=== PATIENT | female | born 1980 | race Caucasian/White ===

== ENCOUNTER 2017-06-29 21:22 | Emergency (ER) | payer MEDICAID ==
[~2017-06-29] VITALS: Ht 157.5 cm; Wt 52.5 kg
[2017-06-29] MEDS ORDERED: SODIUM CHLORIDE 0.9% 1,000 ML IV ONE (23:43)
[2017-06-29] MEDS ORDERED: DiphenhydrAMINE HCL 50 MG/ML VIAL IVP ONE (23:45)
[2017-06-29] MEDS ORDERED: ONDANSETRON HCL 4 MG/2 ML VIAL IVP ONE (23:45)
[2017-06-30 00:01] VITALS: BP 110/65
== END 2017-06-30 00:13 | disposition home or self-care (01) ==
LOC: EMS 21:25
DX: G43.909 Migraine, unspecified, not intractable, without status migrainosus (principal); F41.9 Anxiety disorder, unspecified; F99 Mental disorder, not otherwise specified; F32.9 Major depressive disorder, single episode, unspecified
CPT/HCPCS: 99281

== ENCOUNTER 2017-09-20 21:50 | Inpatient (IN) | payer MEDICAID ==
[~2017-09-20] VITALS: Ht 157.5 cm; Wt 50.0 kg
[2017-09-20] MEDS ORDERED: DiphenhydrAMINE HCL 50 MG/ML VIAL IM ONE (22:30)
[2017-09-20] MEDS ORDERED: LORazepam 2 MG/ML VIAL IM ONE (22:30)
[2017-09-20] MEDS ORDERED: HALOPERIDOL LACTATE 5 MG/ML VIAL IM ONE (22:30)
[2017-09-20] MEDS ORDERED: LORazepam 2 MG TABLET PO PRN (22:45)
[2017-09-20] MEDS ORDERED: ZOLPIDEM TARTRATE 10 MG TABLET PO PRN (22:45)
[2017-09-20] MEDS ORDERED: HALOPERIDOL 5 MG TABLET PO PRN (22:45)
[2017-09-20 23:57] LABS: BASOPHILS % (AUTO) 0.4 % (0.0-2.0); EOSINOPHILS % (AUTO) 2.1 % (1.0-6.0); HEMATOCRIT 33.3 % (36-46); HEMOGLOBIN 11.2 g/dL (12.0-16.0); LYMPHOCYTES % (AUTO) 30.2 % (22.0-44.0); MEAN CORPUSCULAR HEMOGLOBIN 33.1 pg (26.0-34.0); MEAN CORPUSCULAR HGB CONC 33.8 G/dL (31.0-37.0); MEAN CORPUSCULAR VOLUME 98 fL (80-100); MONOCYTES # (AUTO) 0.5 K/uL (0.1-1.0); MONOCYTES % (AUTO) 7.6 % (2.0-9.0); NEUTROPHILS % (AUTO) 59.7 % (40.0-70.0); PLATELET COUNT (AUTO) 215 K/uL (150-450); RED CELL DISTRIBUTION WIDTH 12.9 % (11.5-14.5)
[2017-09-21 00:11] LABS: ANION GAP 6 mmol/L (8-16); CARBON DIOXIDE 26 mmol/L (22-29); CHLORIDE 107 mmol/L (98-107); POTASSIUM 3.8 mmol/L (3.5-5.1); SODIUM SERUM 139 mmol/L (136-145)
[2017-09-21 00:12] LABS: CALCIUM, TOTAL 8.5 mg/dL (8.8-10.5); CREATININE 0.85 mg/dL (0.60-1.30); GLOMERULAR FILTR. RATE CALC > 60 mL/min (>60); GLUCOSE,RANDOM 104 mg/dL (70-110); UREA NITROGEN, BLOOD 9 mg/dL (7-18)
[2017-09-21 00:13] LABS: ALANINE AMINOTRANSFERASE 19 U/L (12-78); ALBUMIN 3.4 g/dL (3.4-5.0); ALKALINE PHOSPHATASE 52 U/L (46-116); ASPARTATE AMINOTRANSFERASE 18 U/L (15-37); BILIRUBIN,TOTAL 0.4 mg/dL (0.1-1.0); TOTAL PROTEIN, SERUM 5.8 g/dL (6.4-8.2)
[2017-09-21 01:28] LABS: CHOL/HDL RATIO 3.1 (3.9-5.7); CHOLESTEROL 151 mg/dL (131-200); HDL CHOLESTEROL 49 mg/dL (40-60); LDL CHOL (CALC.) 92 mg/dL (0-130); THYROID STIMULATING HORMONE 0.51 uIU/mL (0.36-3.74); TRIGLYCERIDES 52 mg/dL (15-150)
[2017-09-21 01:50] VITALS: BP 128/73
[2017-09-21] MEDS ORDERED: INFLUENZA VIRUS VACCINE QVS 2017-18 (3YR+)/PF 60 MCG/0.5 ML SYRINGE IM ONE (03:15)
[2017-09-21 08:32] VITALS: BP 122/71
[2017-09-21 17:27] VITALS: BP 112/88
[2017-09-21] MEDS: HALOPERIDOL 5 MG TABLET PO SCH (18:49)
[2017-09-21] MEDS: BENZTROPINE MESYLATE 0.5 MG TABLET PO SCH (18:50)
[2017-09-22 07:23] VITALS: BP 100/80
[2017-09-22] MEDS: BENZTROPINE MESYLATE 0.5 MG TABLET PO SCH ×2 (08:23→16:13)
[2017-09-22] MEDS: HALOPERIDOL 5 MG TABLET PO SCH ×2 (08:23→16:13)
[2017-09-22 08:28] VITALS: BP 100/54
[2017-09-22 16:00] VITALS: BP 98/60
[2017-09-23 08:21] VITALS: BP 90/69
[2017-09-23] MEDS: BENZTROPINE MESYLATE 0.5 MG TABLET PO SCH ×2 (09:50→16:24)
[2017-09-23] MEDS: HALOPERIDOL 5 MG TABLET PO SCH ×2 (09:50→16:24)
[2017-09-23 16:08] VITALS: BP 102/62
[2017-09-24 07:23] VITALS: BP 121/73
[2017-09-24] MEDS: BENZTROPINE MESYLATE 0.5 MG TABLET PO SCH ×2 (08:08→16:51)
[2017-09-24] MEDS: HALOPERIDOL 5 MG TABLET PO SCH ×2 (08:08→16:51)
[2017-09-24 09:03] VITALS: BP 120/78
[2017-09-24 16:00] VITALS: BP 100/60
[2017-09-25 06:29] VITALS: BP 117/63
[2017-09-25] MEDS: HALOPERIDOL 5 MG TABLET PO SCH ×3 (08:36→16:26)
[2017-09-25] MEDS: BENZTROPINE MESYLATE 0.5 MG TABLET PO SCH ×3 (08:36→16:26)
[2017-09-25 08:45] VITALS: BP 86/47
[2017-09-25 08:50] VITALS: BP 86/39
[2017-09-25 08:55] VITALS: BP 78/48
[2017-09-25] MEDS ORDERED: BENZ1TAB10 PO (10:12)
[2017-09-25] MEDS ORDERED: HALO5 PO (10:12)
[2017-09-25] MEDS ORDERED: LORA2TAB2 PO (10:12)
[2017-09-25 14:29] VITALS: BP 97/58
[2017-09-25 16:41] VITALS: BP 106/60
[2017-09-25] MEDS ORDERED: CIPROFLOXACIN HCL 500 MG TABLET PO SCH (17:00)
[2017-09-26 00:33] VITALS: BP 119/68
[2017-09-26] MEDS ORDERED: CIPR-278 PO (02:22)
[2017-09-26] MEDS ORDERED: BENZ0.5T6 PO (02:22)
[2017-09-26] MEDS ORDERED: HALO5 PO (02:22)
== END 2017-09-26 07:15 | disposition home or self-care (01) | DRG 751 ==
LOC: EMS 21:51 → B3A 23:00 → B2S 09-25 14:27
PROVIDERS: ADMIT Psychiatry & Neurology Psychiatry; ATTEND Psychiatry & Neurology Psychiatry
DX: F29 Unspecified psychosis not due to a substance or known physiological condition (principal); R45.851 Suicidal ideations; F32.9 Major depressive disorder, single episode, unspecified; D64.9 Anemia, unspecified; F41.9 Anxiety disorder, unspecified; R45.87 Impulsiveness; F11.10 Opioid abuse, uncomplicated; F15.90 Other stimulant use, unspecified, uncomplicated; Z91.5 Personal history of self-harm; Z59.0 Homelessness; Z28.21 Immunization not carried out because of patient refusal; Z71.51 Drug abuse counseling and surveillance of drug abuser
CPT/HCPCS: 84443; 90471; 96372; 99285; G0480; J1200; J1630; J2060

== ENCOUNTER 2017-09-25 09:35 | Emergency (ER) | payer MEDICAID ==
[~2017-09-25] VITALS: Ht 157.5 cm; Wt 54.5 kg
[2017-09-25] MEDS ORDERED: LORA2TAB2 PO (10:12)
[2017-09-25] MEDS ORDERED: BENZ1TAB10 PO (10:12)
[2017-09-25] MEDS ORDERED: HALO5 PO (10:12)
[2017-09-25] MEDS ORDERED: SODIUM CHLORIDE 0.9% 1,000 ML IV ONE (10:15)
[2017-09-25 10:40] LABS: BASOPHILS # (AUTO) 0.02 K/uL (0.00-0.20); BASOPHILS % (AUTO) 0.4 % (0.0-2.0); EOSINOPHILS # (AUTO) 0.19 K/uL (0.00-0.70); EOSINOPHILS % (AUTO) 3.22 % (1.0-6.0); HEMATOCRIT 36.5 % (36-46); HEMOGLOBIN 12.2 g/dL (12.0-16.0); LYMPHOCYTES # (AUTO) 1.3 K/uL (1.0-4.8); MEAN CORPUSCULAR HEMOGLOBIN 32.8 pg (26.0-34.0); MEAN CORPUSCULAR HGB CONC 33.5 G/dL (31.0-37.0); MEAN CORPUSCULAR VOLUME 98 fL (80-100); MONOCYTES # (AUTO) 0.4 K/uL (0.1-1.0); MONOCYTES % (AUTO) 6.8 % (2.0-9.0); NEUTROPHILS % (AUTO) 67.6 % (40.0-70.0); PLATELET COUNT (AUTO) 200 K/uL (150-450); RED BLOOD CELL COUNT(AUTO) 3.72 MIL/uL (4.00-5.20); RED CELL DISTRIBUTION WIDTH 13.1 % (11.5-14.5)
[2017-09-25 10:43] LABS: ANION GAP 7 mmol/L (8-16); CALCIUM, TOTAL 8.7 mg/dL (8.8-10.5); CARBON DIOXIDE 27 mmol/L (22-29); CHLORIDE 106 mmol/L (98-107); CREATININE 0.78 mg/dL (0.60-1.30); GLOMERULAR FILTR. RATE CALC > 60 mL/min (>60); GLUCOSE,RANDOM 104 mg/dL (70-110); POTASSIUM 3.8 mmol/L (3.5-5.1); SODIUM SERUM 140 mmol/L (136-145); UREA NITROGEN, BLOOD 11 mg/dL (7-18)
[2017-09-25 10:49] LABS: ALANINE AMINOTRANSFERASE 15 U/L (12-78); ALBUMIN 3.3 g/dL (3.4-5.0); ALKALINE PHOSPHATASE 51 U/L (46-116); ASPARTATE AMINOTRANSFERASE 11 U/L (15-37); BILIRUBIN,TOTAL 0.3 mg/dL (0.1-1.0); TOTAL PROTEIN, SERUM 6.5 g/dL (6.4-8.2)
[2017-09-25 11:15] LABS: APPEARANCE,URINE CLOUDY (CLEAR); BILIRUBIN,URINE NEGATIVE (NEGATIVE); GLUCOSE, URINE (UA) NEGATIVE (NEGATIVE); KETONES,URINE NEGATIVE (NEGATIVE); LEUKOCYTE ESTERASE ,URINE LARGE (NEGATIVE); NITRATE,URINE NEGATIVE (NEGATIVE); OCCULT BLOOD,URINE NEGATIVE (NEGATIVE); PH,URINE 6.5 (5.0-8.0); PROTEIN,URINE NEGATIVE (NEGATIVE); UROBILINOGEN,URINE 0.2 mg/dL (<=1.0)
[2017-09-25 11:24] LABS: RBC,URINE None Seen /HPF (0-2)
[2017-09-25 11:26] LABS: BACTERIA,URINE Few /HPF (None Seen); SQUAMOUS EPITHELIAL CELL,UR Moderate /LPF (None Seen)
[2017-09-25 12:11] VITALS: BP 106/55
[2017-09-26] MEDS ORDERED: CIPR-278 PO (02:22)
[2017-09-26] MEDS ORDERED: BENZ0.5T6 PO (02:22)
[2017-09-26] MEDS ORDERED: HALO5 PO (02:22)
== END 2017-09-25 12:13 | disposition home or self-care (01) ==
LOC: EMS 09:58
DX: Z00.00 Encounter for general adult medical examination without abnormal findings (principal); F29 Unspecified psychosis not due to a substance or known physiological condition; F41.9 Anxiety disorder, unspecified; F32.9 Major depressive disorder, single episode, unspecified
CPT/HCPCS: 36415; 80053; 81001; 84703; 85025; 87077; 87086; 87186; 93005; 96360; 99285; J7030

== ENCOUNTER 2018-01-18 14:33 | Inpatient (IN) | payer MEDICAID ==
[~2018-01-18] VITALS: Ht 157.5 cm; Wt 50.8 kg
[~2018-01-18 14:33] MED LIST: BENZ0.5T6 PO; CIPR-278 PO; HALO5 PO
[2018-01-18] MEDS ORDERED: INFLUENZA VIRUS VACCINE QVS 2017-18 (3YR+)/PF 60 MCG/0.5 ML SYRINGE IM ONE (16:00)
[2018-01-18 16:08] VITALS: BP 101/59
[2018-01-18 16:40] VITALS: BP 100/70
[2018-01-18] MEDS: HALOPERIDOL 5 MG TABLET PO SCH (16:51)
[2018-01-18] MEDS: BENZTROPINE MESYLATE 0.5 MG TABLET PO SCH (16:52)
[2018-01-18] MEDS: LORazepam 2 MG TABLET PO PRN (16:52)
[2018-01-19 06:34] VITALS: BP 110/68
[2018-01-19 08:34] LABS: BASOPHILS % (AUTO) 0.6 % (0.0-2.0); EOSINOPHILS % (AUTO) 3.2 % (1.0-6.0); HEMATOCRIT 35.3 % (36-46); HEMOGLOBIN 11.9 g/dL (12.0-16.0); LYMPHOCYTES % (AUTO) 30.9 % (22.0-44.0); MEAN CORPUSCULAR HEMOGLOBIN 32.7 pg (26.0-34.0); MEAN CORPUSCULAR HGB CONC 33.7 G/dL (31.0-37.0); MEAN CORPUSCULAR VOLUME 97 fL (80-100); MONOCYTES # (AUTO) 0.3 K/uL (0.1-1.0); MONOCYTES % (AUTO) 4.8 % (2.0-9.0); NEUTROPHILS # (AUTO) 3.9 K/uL (1.8-7.7); NEUTROPHILS % (AUTO) 60.5 % (40.0-70.0); PLATELET COUNT (AUTO) 197 K/uL (150-450); RED BLOOD CELL COUNT(AUTO) 3.65 MIL/uL (4.00-5.20); RED CELL DISTRIBUTION WIDTH 13.4 % (11.5-14.5)
[2018-01-19 08:41] LABS: HEMOGLOBIN A1C 5.3 % (4.5-6.2)
[2018-01-19 09:00] VITALS: BP 110/64
[2018-01-19 09:10] LABS: ALANINE AMINOTRANSFERASE 20 U/L (12-78); ALBUMIN 3.3 g/dL (3.4-5.0); ALKALINE PHOSPHATASE 89 U/L (46-116); ANION GAP 7 mmol/L (8-16); ASPARTATE AMINOTRANSFERASE 9 U/L (15-37); BILIRUBIN,TOTAL 0.2 mg/dL (0.1-1.0); CALCIUM, TOTAL 8.3 mg/dL (8.8-10.5); CARBON DIOXIDE 27 mmol/L (22-29); CHLORIDE 107 mmol/L (98-107); CHOL/HDL RATIO 2.8 (3.9-5.7); CHOLESTEROL 157 mg/dL (131-200); CREATININE 0.68 mg/dL (0.60-1.30); FREE T4 (FREE THYROXINE) 0.71 ng/dL (0.76-1.46); GLOMERULAR FILTR. RATE CALC > 60 mL/min (>60); GLUCOSE,RANDOM 92 mg/dL (70-110); HCG,QUANTITATIVE < 1 mIU/mL (0-6); HDL CHOLESTEROL 56 mg/dL (40-60); LDL CHOL (CALC.) 90 mg/dL (0-130); POTASSIUM 4.2 mmol/L (3.5-5.1); SODIUM SERUM 141 mmol/L (136-145); THYROID STIMULATING HORMONE 0.35 uIU/mL (0.36-3.74); TOTAL PROTEIN, SERUM 6.2 g/dL (6.4-8.2); TRIGLYCERIDES 57 mg/dL (15-150); UREA NITROGEN, BLOOD 18 mg/dL (7-18)
[2018-01-19] MEDS: BENZTROPINE MESYLATE 0.5 MG TABLET PO SCH ×2 (09:22→17:18)
[2018-01-19] MEDS: HALOPERIDOL 5 MG TABLET PO SCH ×2 (09:22→17:18)
[2018-01-19] MEDS ORDERED: ACETAMINOPHEN 325 MG TABLET PO PRN (15:15)
[2018-01-19] MEDS ORDERED: IBUPROFEN 400 MG TABLET PO PRN (15:15)
[2018-01-19] MEDS: FERROUS SULFATE 325 MG EC TABLET PO SCH (17:18)
[2018-01-19 19:13] VITALS: BP 93/54
[2018-01-20] MEDS: FERROUS SULFATE 325 MG EC TABLET PO SCH ×2 (06:18→16:45)
[2018-01-20 07:13] VITALS: BP 100/62
[2018-01-20] MEDS: BENZTROPINE MESYLATE 0.5 MG TABLET PO SCH ×2 (08:14→16:45)
[2018-01-20] MEDS: HALOPERIDOL 5 MG TABLET PO SCH ×2 (08:14→16:45)
[2018-01-20 08:21] VITALS: BP 106/52
[2018-01-20] MEDS: LORazepam 2 MG TABLET PO PRN (16:45)
[2018-01-20 17:57] VITALS: BP 99/62
[2018-01-21] MEDS: FERROUS SULFATE 325 MG EC TABLET PO SCH ×2 (06:25→16:18)
[2018-01-21 06:47] VITALS: BP 129/83
[2018-01-21 08:34] VITALS: BP 100/62
[2018-01-21 08:40] LABS: BASOPHILS % (AUTO) 0.6 % (0.0-2.0); EOSINOPHILS % (AUTO) 3.8 % (1.0-6.0); HEMATOCRIT 34.4 % (36-46); HEMOGLOBIN 11.6 g/dL (12.0-16.0); LYMPHOCYTES # (AUTO) 1.7 K/uL (1.0-4.8); LYMPHOCYTES % (AUTO) 35.2 % (22.0-44.0); MEAN CORPUSCULAR HEMOGLOBIN 32.3 pg (26.0-34.0); MEAN CORPUSCULAR HGB CONC 33.6 G/dL (31.0-37.0); MEAN CORPUSCULAR VOLUME 96 fL (80-100); MONOCYTES # (AUTO) 0.4 K/uL (0.1-1.0); MONOCYTES % (AUTO) 7.6 % (2.0-9.0); NEUTROPHILS # (AUTO) 2.6 K/uL (1.8-7.7); NEUTROPHILS % (AUTO) 52.8 % (40.0-70.0); PLATELET COUNT (AUTO) 181 K/uL (150-450); RED BLOOD CELL COUNT(AUTO) 3.59 MIL/uL (4.00-5.20); RED CELL DISTRIBUTION WIDTH 13.6 % (11.5-14.5)
[2018-01-21] MEDS: BENZTROPINE MESYLATE 0.5 MG TABLET PO SCH ×2 (08:44→16:18)
[2018-01-21] MEDS: HALOPERIDOL 5 MG TABLET PO SCH ×2 (08:44→16:18)
[2018-01-21] MEDS: LORazepam 2 MG TABLET PO PRN (08:44)
[2018-01-21] MEDS: NICOTINE 14 MG/24 HOUR PATCH TD SCH (10:27)
[2018-01-21 16:02] VITALS: BP 112/65
[2018-01-21] MEDS: ZOLPIDEM TARTRATE 10 MG TABLET PO PRN (20:14)
[2018-01-22 03:10] VITALS: BP 100/75
[2018-01-22] MEDS: FERROUS SULFATE 325 MG EC TABLET PO SCH ×2 (06:23→16:16)
[2018-01-22] MEDS: NICOTINE 14 MG/24 HOUR PATCH TD SCH (08:27)
[2018-01-22] MEDS: HALOPERIDOL 5 MG TABLET PO SCH ×2 (08:27→16:16)
[2018-01-22] MEDS: BENZTROPINE MESYLATE 0.5 MG TABLET PO SCH ×2 (08:27→16:16)
[2018-01-22] MEDS: LORazepam 2 MG TABLET PO PRN ×3 (08:41→17:54)
[2018-01-22 10:05] VITALS: BP 93/60
[2018-01-22] MEDS: HALOPERIDOL 5 MG TABLET PO PRN (12:53)
[2018-01-22 16:13] VITALS: BP 104/64
[2018-01-23 06:17] VITALS: BP 100/66
[2018-01-23] MEDS: FERROUS SULFATE 325 MG EC TABLET PO SCH ×2 (06:28→16:45)
[2018-01-23] MEDS: BENZTROPINE MESYLATE 0.5 MG TABLET PO SCH ×2 (08:07→16:45)
[2018-01-23] MEDS: HALOPERIDOL 5 MG TABLET PO SCH ×2 (08:07→16:45)
[2018-01-23] MEDS: NICOTINE 21 MG/24 HOUR PATCH TD SCH (08:07)
[2018-01-23 08:28] VITALS: BP 100/59
[2018-01-23] MEDS: LORazepam 2 MG TABLET PO PRN ×3 (09:01→18:38)
[2018-01-23 10:00] VITALS: BP 110/68
[2018-01-23 16:30] VITALS: BP 108/69
[2018-01-23] MEDS ORDERED: MAG HYDROX/AL HYDROX/SIMETH ES 30 ML SUSPENSION UDCUP PO PRN (17:00)
[2018-01-23] MEDS: HALOPERIDOL 5 MG TABLET PO PRN (19:29)
[2018-01-23] MEDS: ZOLPIDEM TARTRATE 10 MG TABLET PO PRN (21:05)
[2018-01-24] MEDS: FERROUS SULFATE 325 MG EC TABLET PO SCH ×2 (06:34→16:52)
[2018-01-24 07:08] VITALS: BP 110/62
[2018-01-24 08:13] VITALS: BP 109/54
[2018-01-24] MEDS: BENZTROPINE MESYLATE 0.5 MG TABLET PO SCH ×2 (08:18→16:52)
[2018-01-24] MEDS: NICOTINE 21 MG/24 HOUR PATCH TD SCH (08:19)
[2018-01-24] MEDS: HALOPERIDOL 5 MG TABLET PO SCH ×2 (08:19→16:52)
[2018-01-24 12:59] VITALS: BP 112/60
[2018-01-24 16:31] VITALS: BP 103/63
[2018-01-24] MEDS: LORazepam 2 MG TABLET PO PRN (18:15)
[2018-01-24] MEDS: HALOPERIDOL 5 MG TABLET PO PRN (18:56)
[2018-01-24] MEDS: ZOLPIDEM TARTRATE 10 MG TABLET PO PRN (20:48)
[2018-01-25] MEDS: FERROUS SULFATE 325 MG EC TABLET PO SCH ×2 (06:37→16:31)
[2018-01-25 06:43] VITALS: BP 112/66
[2018-01-25] MEDS: BENZTROPINE MESYLATE 0.5 MG TABLET PO SCH ×2 (08:38→16:31)
[2018-01-25] MEDS: NICOTINE 21 MG/24 HOUR PATCH TD SCH (08:38)
[2018-01-25] MEDS: HALOPERIDOL 5 MG TABLET PO SCH ×2 (08:38→16:31)
[2018-01-25 08:47] VITALS: BP 100/55
[2018-01-25 09:13] LABS: APPEARANCE,URINE CLOUDY (CLEAR); BILIRUBIN,URINE NEGATIVE (NEGATIVE); GLUCOSE, URINE (UA) NEGATIVE (NEGATIVE); KETONES,URINE NEGATIVE (NEGATIVE); LEUKOCYTE ESTERASE ,URINE MODERATE (NEGATIVE); NITRATE,URINE NEGATIVE (NEGATIVE); OCCULT BLOOD,URINE NEGATIVE (NEGATIVE); PROTEIN,URINE NEGATIVE (NEGATIVE); UROBILINOGEN,URINE 0.2 mg/dL (<=1.0)
[2018-01-25 09:23] LABS: AMPHET/METH SCREEN,URINE NEGATIVE (NEGATIVE); BARBITURATE SCREEN, URINE NEGATIVE (NEGATIVE); BENZODIAZEPINES SCREEN,URINE NEGATIVE (NEGATIVE); CANNABINOID SCREEN,URINE NEGATIVE (NEGATIVE); COCAINE SCREEN,URINE NEGATIVE (NEGATIVE); METHADONE SCREEN, URINE NEGATIVE (NEGATIVE); OPIATE SCREEN,URINE NEGATIVE (NEGATIVE)
[2018-01-25 09:28] LABS: PHENCYCLIDINE SCREEN,URINE NEGATIVE (NEGATIVE)
[2018-01-25 09:30] VITALS: BP 110/68
[2018-01-25] MEDS: LORazepam 2 MG TABLET PO PRN ×2 (09:35→16:31)
[2018-01-25 10:02] LABS: BACTERIA,URINE Moderate /HPF (None Seen); RBC,URINE 0-2 /HPF (0-2); SQUAMOUS EPITHELIAL CELL,UR Moderate /LPF (None Seen)
[2018-01-25 16:23] VITALS: BP 103/60
[2018-01-26] MEDS: FERROUS SULFATE 325 MG EC TABLET PO SCH (06:38)
[2018-01-26 07:17] VITALS: BP 112/65
[2018-01-26 08:39] VITALS: BP 93/60
[2018-01-26] MEDS: BENZTROPINE MESYLATE 0.5 MG TABLET PO SCH (09:55)
[2018-01-26] MEDS: HALOPERIDOL 5 MG TABLET PO SCH (09:55)
[2018-01-26] MEDS: NICOTINE 21 MG/24 HOUR PATCH TD SCH (09:56)
== END 2018-01-26 13:45 | disposition home or self-care (01) | DRG 750 ==
LOC: B3A 15:50
PROVIDERS: ADMIT Psychiatry & Neurology Psychiatry; ATTEND Psychiatry & Neurology Psychiatry
DX: F20.0 Paranoid schizophrenia (principal); E83.51 Hypocalcemia; E03.9 Hypothyroidism, unspecified; D64.9 Anemia, unspecified; F19.10 Other psychoactive substance abuse, uncomplicated; Z59.0 Homelessness; Z71.51 Drug abuse counseling and surveillance of drug abuser
CPT/HCPCS: 80307; 83036; 84439; 84443; 87086

== ENCOUNTER 2018-01-28 09:44 | Emergency (ER) | payer MEDICAID ==
[~2018-01-28] VITALS: Ht 157.5 cm; Wt 51.0 kg
[~2018-01-28 09:44] MED LIST changes: -CIPR-278 PO
[2018-01-28 11:30] VITALS: BP 128/74
== END 2018-01-28 11:50 | disposition home or self-care (01) ==
LOC: EMS 09:45
DX: L29.0 Pruritus ani (principal); F32.9 Major depressive disorder, single episode, unspecified; F41.9 Anxiety disorder, unspecified; Z98.890 Other specified postprocedural states; Z79.899 Other long term (current) drug therapy
CPT/HCPCS: 99283

== ENCOUNTER 2018-07-15 12:57 | Inpatient (IN) | payer MEDICAID ==
[~2018-07-15] VITALS: Ht 154.9 cm; Wt 56.2 kg
[~2018-07-15 12:57] MED LIST changes: +BENZ0.5T44 PO; -BENZ0.5T6 PO; -HALO5 PO; +HALO5TAB2 PO
[2018-07-15] MEDS ORDERED: FLUO-191 PO (13:12)
[2018-07-15] MEDS ORDERED: HYDR-4031 PO (13:12)
[2018-07-15] MEDS ORDERED: ARIP5TAB8 PO (13:12)
[2018-07-15] MEDS ORDERED: LORA1TAB3 PO (13:12)
[2018-07-15 13:38] LABS: BASOPHILS % (AUTO) 0.4 % (0.0-2.0); EOSINOPHILS % (AUTO) 2.8 % (1.0-6.0); HEMATOCRIT 37.9 % (36-46); HEMOGLOBIN 12.8 g/dL (12.0-16.0); LYMPHOCYTES # (AUTO) 1.8 K/uL (1.0-4.8); LYMPHOCYTES % (AUTO) 26.5 % (22.0-44.0); MEAN CORPUSCULAR HEMOGLOBIN 32.6 pg (26.0-34.0); MEAN CORPUSCULAR HGB CONC 33.9 G/dL (31.0-37.0); MEAN CORPUSCULAR VOLUME 96 fL (80-100); MONOCYTES # (AUTO) 0.4 K/uL (0.1-1.0); MONOCYTES % (AUTO) 5.4 % (2.0-9.0); NEUTROPHILS # (AUTO) 4.3 K/uL (1.8-7.7); NEUTROPHILS % (AUTO) 64.9 % (40.0-70.0); PLATELET COUNT (AUTO) 188 K/uL (150-450); RED BLOOD CELL COUNT(AUTO) 3.94 MIL/uL (4.00-5.20); RED CELL DISTRIBUTION WIDTH 14.3 % (11.5-14.5)
[2018-07-15 13:45] LABS: AMPHET/METH SCREEN,URINE NEGATIVE (NEGATIVE); BARBITURATE SCREEN, URINE NEGATIVE (NEGATIVE); BENZODIAZEPINES SCREEN,URINE NEGATIVE (NEGATIVE); CANNABINOID SCREEN,URINE NEGATIVE (NEGATIVE); COCAINE SCREEN,URINE NEGATIVE (NEGATIVE); METHADONE SCREEN, URINE NEGATIVE (NEGATIVE); OPIATE SCREEN,URINE NEGATIVE (NEGATIVE)
[2018-07-15 13:48] LABS: PHENCYCLIDINE SCREEN,URINE NEGATIVE (NEGATIVE)
[2018-07-15 13:55] LABS: ANION GAP 9 mmol/L (8-16); CALCIUM, TOTAL 8.6 mg/dL (8.8-10.5); CARBON DIOXIDE 27 mmol/L (22-29); CHLORIDE 103 mmol/L (98-107); CREATININE 0.74 mg/dL (0.60-1.30); GLOMERULAR FILTR. RATE CALC > 60 mL/min (>60); GLUCOSE,RANDOM 114 mg/dL (70-110); POTASSIUM 3.8 mmol/L (3.5-5.1); SODIUM SERUM 139 mmol/L (136-145); UREA NITROGEN, BLOOD 14 mg/dL (7-18)
[2018-07-15 14:01] LABS: ALANINE AMINOTRANSFERASE 61 U/L (12-78); ALBUMIN 3.4 g/dL (3.4-5.0); ALKALINE PHOSPHATASE 57 U/L (46-116); ASPARTATE AMINOTRANSFERASE 24 U/L (15-37); BILIRUBIN,TOTAL 0.4 mg/dL (0.1-1.0); TOTAL PROTEIN, SERUM 6.5 g/dL (6.4-8.2)
[2018-07-15] MEDS ORDERED: ACETAMINOPHEN 500 MG TABLET PO ONE (16:15)
[2018-07-15] MEDS ORDERED: ZOLPIDEM TARTRATE 10 MG TABLET PO PRN (17:15)
[2018-07-15 19:50] VITALS: BP 115/62
[2018-07-15] MEDS ORDERED: CloNIDine HCL 0.1 MG TABLET PO PRN (20:15)
[2018-07-15] MEDS ORDERED: ONDANSETRON HCL 4 MG TABLET PO PRN (20:15)
[2018-07-15] MEDS ORDERED: MAG HYDROX/AL HYDROX/SIMETH ES 30 ML SUSPENSION UDCUP PO PRN (20:15)
[2018-07-15] MEDS ORDERED: BENZOCAINE/MENTHOL LOZENGE MM PRN (20:15)
[2018-07-15] MEDS ORDERED: IBUPROFEN 600 MG TABLET PO PRN (20:15)
[2018-07-15] MEDS ORDERED: PETROLATUM,WHITE 71 GM JELLY TP PRN (20:15)
[2018-07-15] MEDS ORDERED: ACETAMINOPHEN 325 MG TABLET PO PRN (20:15)
[2018-07-15] MEDS ORDERED: MAGNESIUM HYDROXIDE SUSPENSION 30 ML UDCUP PO PRN (20:15)
[2018-07-15] MEDS ORDERED: BACITRACIN 28.4 GM OINTMENT TP PRN (20:15)
[2018-07-15] MEDS ORDERED: ALBUTEROL SULFATE HFA 90 MCG/PUFF 8 GM INHALER IH PRN (20:15)
[2018-07-15] MEDS ORDERED: LOPERAMIDE HCL 2 MG CAPSULE PO PRN (20:15)
[2018-07-15] MEDS: ARIPiprazole 5 MG TABLET PO SCH (21:12)
[2018-07-16 00:01] VITALS: BP 110/71
[2018-07-16 08:11] VITALS: BP 105/63
[2018-07-16] MEDS: NICOTINE 21 MG/24 HOUR PATCH TD SCH ×2 (09:00→09:50)
[2018-07-16] MEDS: FLUoxetine HCL 20 MG CAPSULE PO SCH (09:23)
[2018-07-16] MEDS: DOCUSATE SODIUM 100 MG CAPSULE PO SCH (09:24)
[2018-07-16] MEDS: OMEPRAZOLE 20 MG CAPSULE PO SCH (09:24)
[2018-07-16] MEDS: LORazepam 1 MG TABLET PO PRN (14:28)
[2018-07-16 16:04] VITALS: BP 119/71
[2018-07-16] MEDS: HydrOXYzine PAMOATE 25 MG CAPSULE PO SCH (17:26)
[2018-07-16] MEDS: ARIPiprazole 5 MG TABLET PO SCH (20:12)
[2018-07-17 03:50] VITALS: BP 111/60
[2018-07-17] MEDS: LORazepam 1 MG TABLET PO PRN ×2 (03:55→11:06)
[2018-07-17 08:39] VITALS: BP 109/55
[2018-07-17] MEDS: FLUoxetine HCL 20 MG CAPSULE PO SCH (09:11)
[2018-07-17] MEDS: HydrOXYzine PAMOATE 25 MG CAPSULE PO SCH ×2 (09:11→16:21)
[2018-07-17] MEDS: OMEPRAZOLE 20 MG CAPSULE PO SCH (09:11)
[2018-07-17] MEDS: DOCUSATE SODIUM 100 MG CAPSULE PO SCH (09:11)
[2018-07-17] MEDS: NICOTINE 21 MG/24 HOUR PATCH TD SCH (09:12)
[2018-07-17 16:26] VITALS: BP 108/74
[2018-07-17] MEDS: HALOPERIDOL 5 MG TABLET PO PRN (17:37)
[2018-07-17] MEDS: ARIPiprazole 5 MG TABLET PO SCH (20:09)
[2018-07-18 00:26] VITALS: BP 110/68
[2018-07-18 08:06] VITALS: BP 102/64
[2018-07-18] MEDS: HydrOXYzine PAMOATE 25 MG CAPSULE PO SCH ×2 (08:51→16:01)
[2018-07-18] MEDS: DOCUSATE SODIUM 100 MG CAPSULE PO SCH (08:51)
[2018-07-18] MEDS: NICOTINE 21 MG/24 HOUR PATCH TD SCH (08:51)
[2018-07-18] MEDS: FLUoxetine HCL 20 MG CAPSULE PO SCH (08:51)
[2018-07-18] MEDS: OMEPRAZOLE 20 MG CAPSULE PO SCH (08:51)
[2018-07-18] MEDS ORDERED: FLUO-191 PO (09:58)
[2018-07-18] MEDS ORDERED: ARIP5TAB8 PO (09:58)
[2018-07-18] MEDS ORDERED: HYDR-4031 PO (09:58)
[2018-07-18] MEDS: LORazepam 0.5 MG TABLET PO PRN (13:24)
[2018-07-18 16:02] VITALS: BP 105/69
[2018-07-18] MEDS: ARIPiprazole 5 MG TABLET PO SCH (20:05)
[2018-07-19 04:29] VITALS: BP 100/61
[2018-07-19 08:28] VITALS: BP 105/67
[2018-07-19] MEDS: HydrOXYzine PAMOATE 25 MG CAPSULE PO SCH ×2 (08:45→16:41)
[2018-07-19] MEDS: NALTREXONE HCL 50 MG TABLET PO SCH (08:45)
[2018-07-19] MEDS: OMEPRAZOLE 20 MG CAPSULE PO SCH (08:45)
[2018-07-19] MEDS: DOCUSATE SODIUM 100 MG CAPSULE PO SCH (08:45)
[2018-07-19] MEDS: NICOTINE 21 MG/24 HOUR PATCH TD SCH (08:45)
[2018-07-19] MEDS: FLUoxetine HCL 20 MG CAPSULE PO SCH (08:45)
[2018-07-19] MEDS: HALOPERIDOL 5 MG TABLET PO PRN (09:22)
[2018-07-19] MEDS: LORazepam 0.5 MG TABLET PO PRN ×2 (09:23→16:41)
[2018-07-19 16:00] VITALS: BP 104/65
[2018-07-19] MEDS: ARIPiprazole 10 MG TABLET PO SCH (20:11)
[2018-07-20 00:06] VITALS: BP 107/61
[2018-07-20] MEDS: NICOTINE 21 MG/24 HOUR PATCH TD SCH (08:33)
[2018-07-20] MEDS: HydrOXYzine PAMOATE 25 MG CAPSULE PO SCH ×2 (08:34→16:07)
[2018-07-20] MEDS: NALTREXONE HCL 50 MG TABLET PO SCH (08:34)
[2018-07-20] MEDS: FLUoxetine HCL 20 MG CAPSULE PO SCH (08:34)
[2018-07-20] MEDS: OMEPRAZOLE 20 MG CAPSULE PO SCH (08:35)
[2018-07-20] MEDS: DOCUSATE SODIUM 100 MG CAPSULE PO SCH (08:35)
[2018-07-20 08:38] VITALS: BP 109/68
[2018-07-20] MEDS ORDERED: FLUO-191 PO (12:05)
[2018-07-20] MEDS ORDERED: ARIP10TA8 PO (12:05)
[2018-07-20] MEDS ORDERED: HYD25 PO (12:05)
[2018-07-20] MEDS ORDERED: NALT50TA PO (12:05)
[2018-07-20] MEDS: LORazepam 0.5 MG TABLET PO PRN (12:10)
[2018-07-20] MEDS: HALOPERIDOL 5 MG TABLET PO PRN (12:10)
[2018-07-20 16:20] VITALS: BP 100/63
[2018-07-20] MEDS: ARIPiprazole 10 MG TABLET PO SCH (20:06)
[2018-07-21 00:08] VITALS: BP 101/62
[2018-07-21] MEDS ORDERED: NALT50TA6 PO (02:57)
[2018-07-21] MEDS ORDERED: DSS100 PO (02:57)
[2018-07-21] MEDS ORDERED: OMEP20 PO (02:57)
[2018-07-21] MEDS ORDERED: ARIP10TA8 PO (06:53)
[2018-07-21] MEDS ORDERED: FLUO-191 PO (06:53)
[2018-07-21] MEDS ORDERED: HYDR-4031 PO (06:58)
[2018-07-21] MEDS ORDERED: HYD25 PO (07:01)
[2018-07-21] MEDS ORDERED: FLUoxetine HCL 20 MG CAPSULE PO SCH (09:00)
== END 2018-07-21 07:20 | disposition home or self-care (01) | DRG 751 ==
LOC: EMS 12:58 → B2S 17:21
PROVIDERS: ADMIT Psychiatry & Neurology Psychiatry; ATTEND Psychiatry & Neurology Psychiatry
DX: F33.3 Major depressive disorder, recurrent, severe with psychotic symptoms (principal); R45.851 Suicidal ideations; Z91.19 Patient's noncompliance with other medical treatment and regimen; F41.9 Anxiety disorder, unspecified; Z59.0 Homelessness; Z98.891 History of uterine scar from previous surgery; Z79.899 Other long term (current) drug therapy
CPT/HCPCS: 87081; 99285; G0480

== ENCOUNTER 2019-02-05 16:36 | Emergency (ER) | payer MEDICAID, OTHER ==
[~2019-02-05] VITALS: Ht 157.5 cm; Wt 51.8 kg
[~2019-02-05 16:36] MED LIST changes: +ARIP10TA8 PO; -BENZ0.5T44 PO; +FLUO-191 PO; -HALO5TAB2 PO; +HYD25 PO; +NALT50TA PO
[2019-02-05 18:17] LABS: AMPHET/METH SCREEN,URINE POSITIVE (NEGATIVE); BARBITURATE SCREEN, URINE NEGATIVE (NEGATIVE); BENZODIAZEPINES SCREEN,URINE NEGATIVE (NEGATIVE); CANNABINOID SCREEN,URINE NEGATIVE (NEGATIVE); COCAINE SCREEN,URINE NEGATIVE (NEGATIVE); METHADONE SCREEN, URINE NEGATIVE (NEGATIVE); OPIATE SCREEN,URINE NEGATIVE (NEGATIVE)
[2019-02-05 18:19] LABS: PHENCYCLIDINE SCREEN,URINE NEGATIVE (NEGATIVE)
[2019-02-05] MEDS ORDERED: ACETAMINOPHEN 325 MG TABLET PO ONE (18:30)
[2019-02-05 19:03] VITALS: BP 104/69
== END 2019-02-05 19:03 | disposition home or self-care (01) ==
LOC: EMS 16:37
DX: R44.0 Auditory hallucinations (principal); F31.9 Bipolar disorder, unspecified; F41.9 Anxiety disorder, unspecified; Z79.899 Other long term (current) drug therapy

== ENCOUNTER 2019-03-18 21:06 | Emergency (ER) | payer OTHER ==
[~2019-03-18] VITALS: Ht 157.5 cm; Wt 53.2 kg
[2019-03-18 22:12] LABS: BASOPHILS % (AUTO) 0.6 % (0.0-2.0); EOSINOPHILS % (AUTO) 2.1 % (1.0-6.0); HEMATOCRIT 40.1 % (36-46); HEMOGLOBIN 13.4 g/dL (12.0-16.0); LYMPHOCYTES # (AUTO) 1.9 K/uL (1.0-4.8); LYMPHOCYTES % (AUTO) 32.2 % (22.0-44.0); MEAN CORPUSCULAR HGB CONC 33.3 G/dL (31.0-37.0); MEAN CORPUSCULAR VOLUME 96 fL (80-100); MONOCYTES # (AUTO) 0.5 K/uL (0.1-1.0); MONOCYTES % (AUTO) 8.8 % (2.0-9.0); NEUTROPHILS # (AUTO) 3.4 K/uL (1.8-7.7); NEUTROPHILS % (AUTO) 56.3 % (40.0-70.0); PLATELET COUNT (AUTO) 247 K/uL (150-450); RED BLOOD CELL COUNT(AUTO) 4.18 MIL/uL (4.00-5.20); RED CELL DISTRIBUTION WIDTH 13.8 % (11.5-14.5)
[2019-03-18 22:21] LABS: ANION GAP 10 mmol/L (8-16); CARBON DIOXIDE 29 mmol/L (22-29); CHLORIDE 104 mmol/L (98-107); CREATININE 0.82 mg/dL (0.60-1.30); GLOMERULAR FILTR. RATE CALC > 60 mL/min (>60); GLUCOSE,RANDOM 100 mg/dL (70-110); POTASSIUM 3.7 mmol/L (3.5-5.1); SODIUM SERUM 143 mmol/L (136-145); UREA NITROGEN, BLOOD 10 mg/dL (7-18)
[2019-03-18 22:32] LABS: ALANINE AMINOTRANSFERASE 20 U/L (12-78); ALBUMIN 3.8 g/dL (3.4-5.0); ALKALINE PHOSPHATASE 66 U/L (46-116); ASPARTATE AMINOTRANSFERASE 12 U/L (15-37); BILIRUBIN,TOTAL 0.3 mg/dL (0.1-1.0); HCG,QUANTITATIVE < 1 mIU/mL (0-6); TOTAL PROTEIN, SERUM 6.9 g/dL (6.4-8.2)
[2019-03-18 23:04] LABS: AMPHET/METH SCREEN,URINE POSITIVE (NEGATIVE); BARBITURATE SCREEN, URINE NEGATIVE (NEGATIVE); BENZODIAZEPINES SCREEN,URINE NEGATIVE (NEGATIVE); CANNABINOID SCREEN,URINE POSITIVE (NEGATIVE); COCAINE SCREEN,URINE NEGATIVE (NEGATIVE); METHADONE SCREEN, URINE NEGATIVE (NEGATIVE); OPIATE SCREEN,URINE NEGATIVE (NEGATIVE)
[2019-03-18 23:05] LABS: PHENCYCLIDINE SCREEN,URINE NEGATIVE (NEGATIVE)
[2019-03-18 23:32] VITALS: BP 110/74
== END 2019-03-18 23:36 | disposition home or self-care (01) ==
LOC: EMS 21:08
DX: F20.9 Schizophrenia, unspecified (principal); F19.959 Other psychoactive substance use, unspecified with psychoactive substance-induced psychotic disorder, unspecified; F15.10 Other stimulant abuse, uncomplicated; F32.9 Major depressive disorder, single episode, unspecified; F41.9 Anxiety disorder, unspecified; F17.210 Nicotine dependence, cigarettes, uncomplicated; F12.90 Cannabis use, unspecified, uncomplicated; Z76.0 Encounter for issue of repeat prescription
CPT/HCPCS: 36415; 80053; 80307; 84702; 85025; 99284; G0480

== ENCOUNTER 2020-02-26 00:11 | Emergency (ER) | payer OTHER ==
[~2020-02-26] VITALS: Ht 162.6 cm; Wt 115.0 kg
[2020-02-26] MEDS ORDERED: HALOPERIDOL 5 MG TABLET PO ONE (00:45)
[2020-02-26] MEDS ORDERED: HALOPERIDOL 5 MG TABLET ONE (00:51)
[2020-02-26 01:20] LABS: BASOPHILS % (AUTO) 0.7 % (0.0-2.0); EOSINOPHILS % (AUTO) 0.5 % (1.0-6.0); HEMATOCRIT 40.4 % (36-46); HEMOGLOBIN 13.4 g/dL (12.0-16.0); LYMPHOCYTES # (AUTO) 1.3 K/uL (1.0-4.8); LYMPHOCYTES % (AUTO) 21.4 % (22.0-44.0); MEAN CORPUSCULAR HEMOGLOBIN 32.3 pg (26.0-34.0); MEAN CORPUSCULAR HGB CONC 33.1 G/dL (31.0-37.0); MEAN CORPUSCULAR VOLUME 98 fL (80-100); MONOCYTES # (AUTO) 0.5 K/uL (0.1-1.0); NEUTROPHILS # (AUTO) 4.2 K/uL (1.8-7.7); NEUTROPHILS % (AUTO) 69.4 % (40.0-70.0); PLATELET COUNT (AUTO) 279 K/uL (150-450); RED BLOOD CELL COUNT(AUTO) 4.14 MIL/uL (4.00-5.20); RED CELL DISTRIBUTION WIDTH 12.9 % (11.5-14.5)
[2020-02-26 01:33] LABS: AMPHET/METH SCREEN,URINE POSITIVE (NEGATIVE); BARBITURATE SCREEN, URINE NEGATIVE (NEGATIVE); BENZODIAZEPINES SCREEN,URINE NEGATIVE (NEGATIVE); CANNABINOID SCREEN,URINE NEGATIVE (NEGATIVE); COCAINE SCREEN,URINE NEGATIVE (NEGATIVE); METHADONE SCREEN, URINE NEGATIVE (NEGATIVE); OPIATE SCREEN,URINE NEGATIVE (NEGATIVE)
[2020-02-26 01:35] LABS: ANION GAP 9 mmol/L (8-16); CALCIUM, TOTAL 9.6 mg/dL (8.8-10.5); CARBON DIOXIDE 27 mmol/L (22-29); CHLORIDE 103 mmol/L (98-107); CREATININE 0.85 mg/dL (0.60-1.30); GLOMERULAR FILTR. RATE CALC > 60 mL/min (>60); GLUCOSE,RANDOM 102 mg/dL (70-110); POTASSIUM 3.8 mmol/L (3.5-5.1); SODIUM SERUM 139 mmol/L (136-145); UREA NITROGEN, BLOOD 13 mg/dL (7-18)
[2020-02-26 01:37] LABS: PHENCYCLIDINE SCREEN,URINE NEGATIVE (NEGATIVE)
[2020-02-26 01:53] LABS: ALANINE AMINOTRANSFERASE 43 U/L (12-78); ALBUMIN 4.5 g/dL (3.4-5.0); ALKALINE PHOSPHATASE 70 U/L (46-116); ASPARTATE AMINOTRANSFERASE 28 U/L (15-37); BILIRUBIN,TOTAL 0.9 mg/dL (0.1-1.0); HCG,QUANTITATIVE < 1 mIU/mL (0-6); TOTAL PROTEIN, SERUM 7.9 g/dL (6.4-8.2)
[2020-02-26 02:27] VITALS: BP 108/65
[2020-02-26] MEDS ORDERED: LORazepam 1 MG TABLET PO ONE (02:30)
== END 2020-02-26 02:52 | disposition home or self-care (01) ==
LOC: EMS 00:12
DX: F15.10 Other stimulant abuse, uncomplicated (principal); F32.9 Major depressive disorder, single episode, unspecified; F20.9 Schizophrenia, unspecified; F41.9 Anxiety disorder, unspecified; F12.90 Cannabis use, unspecified, uncomplicated; F17.210 Nicotine dependence, cigarettes, uncomplicated; Z79.899 Other long term (current) drug therapy
CPT/HCPCS: 36415; 80053; 80307; 84702; 85025; 99283; G0480